=== PATIENT | male | born 1970 | race African-American/Black ===

== ENCOUNTER 2022-08-30 14:21 | Emergency (ER) | payer SELFPAY ==
[~2022-08-30] VITALS: Ht 182.9 cm; Wt 90.7 kg
[2022-08-30 15:14] VITALS: BP 146/84
== END 2022-08-30 18:20 | disposition home or self-care (01) ==
LOC: ER 14:21
DX: G47.00 Insomnia, unspecified (principal); Z59.00 Homelessness unspecified

== ENCOUNTER 2022-09-01 18:42 | Emergency (ER) | payer MEDICARE ==
[~2022-09-01] VITALS: Ht 182.9 cm; Wt 91.0 kg
[2022-09-01] MEDS ORDERED: QUET100T38 PO (21:12)
[2022-09-01] MEDS ORDERED: TRAZ-181 PO (21:12)
[2022-09-01] MEDS ORDERED: CLON0.1T PO (21:12)
[2022-09-01 21:22] VITALS: BP 163/98
[2022-09-01] MEDS ORDERED: LISI-716 PO (21:41)
== END 2022-09-01 22:53 | disposition home or self-care (01) ==
LOC: ER 18:45
DX: F41.9 Anxiety disorder, unspecified (principal); Z79.899 Other long term (current) drug therapy; Z59.00 Homelessness unspecified